=== PATIENT | female | born 1995 | race Two or more races ===

== ENCOUNTER 2023-10-23 07:30 | Inpatient (IN) | payer OTHER ==
[2023-10-23] MEDS ORDERED: RAMIPRIL10 MG (08:59)
[2023-10-26] MEDS ORDERED: CEFOXITIN SODIUM 2,000 MG VIAL IV ONE ×3 (12:03→17:05)
[2023-10-26] MEDS ORDERED: POVIDONE-IODINE 118 ML BOTT TOP ONE ×2 (12:03→13:15)
[2023-10-26] MEDS ORDERED: THROMBIN,HU/FIBRINOGEN/CALCIUM 10 ML SYRINGE TOP ONE ×2 (12:35→13:15)
[2023-10-26] MEDS ORDERED: RINGERS SOLUTION,LACTATED 1,000 ML IV SCH (14:00)
[2023-10-26] MEDS ORDERED: ONDANSETRON HCL 2 MG/ML VIAL IV PRN (14:00)
[2023-10-26] MEDS ORDERED: KETOROLAC TROMETHAMINE 30 MG VIAL IV SCH (14:01)
[2023-10-26] MEDS ORDERED: MORPHINE SULFATE 4 MG/ML CARTRIDGE IV PRN (14:15)
[2023-10-26] MEDS ORDERED: ENALAPRILAT DIHYDRATE 1.25 MG/ML VIAL IV PRN (15:30)
[2023-10-26 16:04] LABS: MEAN CELL VOLUME 89.7 fL (80.00-100.00); MEAN CORPUSCULAR HEMOGLOBIN 29.9 pg (27.00-32.0); MEAN CORPUSCULAR HGB CONC 33.4 g/dl (32.0-36.0); PLATELET COUNT 303 K/uL (150-450); RED BLOOD COUNT 4.35 M/uL (4.00-6.00); RED CELL DISTRIBUTION WIDTH 12.8 % (11.5-14.5)
[2023-10-26 16:37] LABS: CALCIUM 9.1 mg/dL (8.5-10.1); CREATININE SERUM 0.7 mg/dL (0.55-1.02); GFR 98.25; POTASSIUM 4.22 mEq/L (3.5-5.1)
[2023-10-26] MEDS ORDERED: CEFOXITIN SODIUM 2,000 MG VIAL IV SCH (17:00)
[2023-10-26] MEDS ORDERED: SIMETHICONE 125 MG CAPSULE PO SCH (17:00)
[2023-10-26] MEDS ORDERED: KETOROLAC TROMETHAMINE 30 MG VIAL ONE (17:05)
[2023-10-26] MEDS ORDERED: DOCUSATE SODIUM 100MG CAP PO SCH (21:00)
[2023-10-26] MEDS ORDERED: FAMOTIDINE/PF 20 MG/2 ML VIAL IV SCH (21:00)
[2023-10-26 21:17] LABS: HEMATOCRIT 36.5 % (36.0-45.00); HEMOGLOBIN 12.3 g/dL (12.0-15.00); MEAN CELL VOLUME 90.9 fL (80.00-100.00); MEAN CORPUSCULAR HEMOGLOBIN 30.6 pg (27.00-32.0); MEAN CORPUSCULAR HGB CONC 33.7 g/dl (32.0-36.0); PLATELET COUNT 318 K/uL (150-450); RED BLOOD COUNT 4.02 M/uL (4.00-6.00); RED CELL DISTRIBUTION WIDTH 12.7 % (11.5-14.5)
[2023-10-27 06:17] LABS: HEMOGLOBIN 11.6 g/dL (12.0-15.00); MEAN CELL VOLUME 89.1 fL (80.00-100.00); MEAN CORPUSCULAR HEMOGLOBIN 30.4 pg (27.00-32.0); MEAN CORPUSCULAR HGB CONC 34.1 g/dl (32.0-36.0); PLATELET COUNT 278 K/uL (150-450); RED BLOOD COUNT 3.82 M/uL (4.00-6.00); RED CELL DISTRIBUTION WIDTH 12.7 % (11.5-14.5)
[2023-10-27 07:17] LABS: CALCIUM 8.3 mg/dL (8.5-10.1); CREATININE SERUM 0.57 mg/dL (0.55-1.02); GFR 124.54; POTASSIUM 4.04 mEq/L (3.5-5.1)
[2023-10-27] MEDS ORDERED: RAMIPRIL 5 MG CAPSULE PO SCH (09:00)
[2023-10-27] MEDS ORDERED: ENOXAPARIN SODIUM 40 MG/0.4 ML SYRINGE SUBCUTANEO SCH (09:00)
[2023-10-27] MEDS ORDERED: OxyCODONE HCL/APAP UD (PERCOCET) PO PRN (09:30)
== END 2023-10-28 14:23 | disposition home or self-care (01) | DRG 743 ==
LOC: SURG 10-26 05:54 → O/R 10-26 05:54 → SURH 10-26 07:30 → SURG 10-26 15:17 → SURH 10-26 21:45 → SURG 10-27 21:58
PROVIDERS: Obstetrics & Gynecology; ADMIT Obstetrics & Gynecology Gynecologic Oncology; ATTEND Obstetrics & Gynecology Gynecologic Oncology
PROC: 0UB90ZZ Excision of Uterus, Open Approach (ICD-10-PCS; principal; 2023-10-26 21:45)
DX: D25.9 Leiomyoma of uterus, unspecified (principal); Z20.822 Contact with and (suspected) exposure to COVID-19